=== PATIENT | male | born 1980 | race Two or more races ===

== ENCOUNTER 2025-06-30 22:44 | Emergency (ER) | payer OTHER ==
[~2025-06-30] VITALS: Ht 165.1 cm; Wt 75.0 kg
[2025-06-30 22:52] VITALS: TEMP 98.1
[2025-06-30 23:33] LABS: PLATELET COUNT (AUTO) 221 K/uL (150-450); RED BLOOD CELL COUNT(AUTO) 4.84 MIL/uL (4.50-5.90); RED CELL DISTRIBUTION WIDTH 13.6 % (11.5-14.5); WHITE BLOOD COUNT (AUTO) 5.9 K/uL (4.5-11.0)
[2025-06-30 23:42] LABS: CALCIUM, TOTAL 8.7 mg/dL (8.8-10.5); CREATININE 0.87 mg/dL (0.60-1.30); GLOMERULAR FILTR. RATE CALC > 60 mL/min (>60); GLUCOSE,RANDOM 111 mg/dL (70-110); SODIUM SERUM 137 mmol/L (136-145); UREA NITROGEN, BLOOD 16 mg/dL (7-18)
[2025-06-30 23:48] LABS: ASPARTATE AMINOTRANSFERASE 30.0 U/L (15-37); TOTAL PROTEIN, SERUM 7.4 g/dL (6.4-8.2)
[2025-07-01] MEDS ORDERED: PANT-31 PO (00:54)
[2025-07-01 01:00] VITALS: BP 122/73; PULSE 56; RESP 16; O2SAT 97
[2025-07-01] MEDS: PANTOPRAZOLE SODIUM 40 MG DR TABLET PO ONE (01:02)
== END 2025-07-01 01:16 | disposition home or self-care (01) ==
LOC: EMS 23:22
DX: R10.84 Generalized abdominal pain (principal)
CPT/HCPCS: 80048; 80076; 83690; 85025; 93005; 99284